=== PATIENT | female | born 1945 | race Hispanic/Latino ===

== ENCOUNTER → 2018-08-27 09:19 | Outpatient (CLI) | payer MEDICARE, OTHER, SELFPAY ==
--- NOTE | 2018-08-27 | DI.US.S_ITS ---
PROCEDURE: US FINE NEEDLE ASPIRATION INDICATIONS: LOWER POLE RIGHT THYROID NODULE TECHNIQUE: The indications, alternatives, benefits, risks, and complications of the procedure were explained to the patient. Written informed consent was obtained and placed in the chart. The area of interest was examined sonographically and a site was chosen for ultrasound guided percutaneous sampling. The skin was prepared and draped in the usual fashion, and anesthetized with 1% lidocaine infiltrated from the skin down to the lesion. Multiple passes were then performed, with contents emptied into an appropriate pathology specimen container. A bandage was applied to the area of access at completion of the study. COMPARISON: None. FINDINGS: Location(s) of lesion(s) sampled: Right lower thyroid lobe nodule, previously identified [place]: 25 gauge hypodermic needles. Number of passes: 725 gauge needles, one 22 gauge needle Medications: 1% lidocaine for local anaesthesia. Complications: None. IMPRESSION: Successful ultrasound-guided right inferior thyroid lobe nodule fine needle aspiration, with cytology results pending. Dictated by: Yonathan Owens M.D. on 08/27/2018 at 12:52 Approved by: Yonathan Owens M.D. on 08/27/2018 at 12:53
--- NOTE | 2018-08-27 | PATH_ITS ---
Note [facility] Accession Number: [id number] TESTS RESULT FLAG UNITS REF RANGE LAB Clinician Provided Cytology Information No. of containers..01 ThinPrep Vial No. of containers..04 Previously Prepared Cytology Slide LOWER POLE R THYROID DIAGNOSIS: 02 LOWER POLE R THYROID INCONCLUSIVE. 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 COMMENT: A repeat aspirate after an appropriate interval of observation might be helpful, if clinically indicated. Pathologist ICD10: 02 R89.6 02 Esperanza Hirsch MD, Pathologist NPI- [id number] Lucio Crisostomo, Property Insurance Inspector ([facility] [place]) 01 30 CC, RED, CLEAR RECEIVED: 7 ALCOHOL FIXED AND 7 QUICK STAINED SLIDES. /VDU FLAG LEGEND: L-Low Normal,H-High Normal,LL-Alert Low,HH-Alert High <-Panic Low,>-Panic High,A-Abnormal,AA-Critical Abnormal Performed at: 01 =Z [facility] [address], [place] [address] Sreedhar Jhaveri MD, 02 [facility] [address] [place] [id number] Slick Agosto MD, Performed at: 01 [facility] [address], [place], [place] [id number] MD Sreedhar Jhaveri MD Phone: [phone]
== END ==
PROVIDERS: Visit Provider Internal Medicine Endocrinology, Diabetes & Metabolism
DX: E04.1 Nontoxic single thyroid nodule (principal)
CPT/HCPCS: 10022; 76942